=== PATIENT | male | born 1965 | race Hispanic/Latino ===

== ENCOUNTER 2022-06-06 08:59 | Outpatient (RCR) | payer OTHER | END 2022-06-07 | LOC: PT 08:59 | PROVIDERS: ATTEND Psychiatry & Neurology Neurology | DX: G82.20 Paraplegia, unspecified (principal); R26.2 Difficulty in walking, not elsewhere classified; Z86.73 Personal history of transient ischemic attack (TIA), and cerebral infarction without residual deficits ==

== ENCOUNTER 2022-07-01 09:00 | Outpatient (RCR) | payer OTHER ==
[~2022-07-01 09:00] MED LIST: FAMOTIDINE 20 MG/2 ML VIAL IV ONE; SODIUM CHLORIDE 0.9% 100 ML ONE
== END 2022-07-05 ==
LOC: PT 09:00
PROVIDERS: ATTEND Psychiatry & Neurology Neurology
DX: G82.20 Paraplegia, unspecified (principal); Z86.73 Personal history of transient ischemic attack (TIA), and cerebral infarction without residual deficits; R26.2 Difficulty in walking, not elsewhere classified
CPT/HCPCS: 97110 ×9; 97112 ×2; 97116 ×5; J7050

== ENCOUNTER 2022-07-07 07:31 | Outpatient (RCR) | payer OTHER | END 2022-08-05 | LOC: PT 07:31 | PROVIDERS: ATTEND Psychiatry & Neurology Neurology | DX: Z86.73 Personal history of transient ischemic attack (TIA), and cerebral infarction without residual deficits (principal); G82.20 Paraplegia, unspecified; R26.2 Difficulty in walking, not elsewhere classified ==